=== PATIENT | female | born 1970 | race Caucasian/White ===

== ENCOUNTER → 2020-10-25 | Day surgery (SDC) | payer OTHER ==
[~2020-10-25] MED LIST: ASPIRIN EC81 MG PO; BORIC ACID VG; CLARITIN10 MG PO; FLEXERIL10 MG PO; KLOR-CON M 1010 MEQ PO; LEVOTHYROXINE88 MCG PO; LISINOPRIL-HCT1 EAC1 PO; MEDROL 4MG DOSEP4 MG PO; METFORMIN HCL500 M3 PO; SIMVASTATIN40 MG PO; TRIAMCINOLONE 080 GM TOP; VANDAZOLE70 GM VG; VENTOLIN HFA IN18 GM INH; VOLTAREN ARTHRI20 GM TOP
[2020-10-25 09:13] LABS: HCG (URINE) SCREEN NEGATIVE (NEGATIVE)
== END | disposition home or self-care (01) ==
LOC: FAS 08:30
PROVIDERS: Surgery
DX: Z12.11 Encounter for screening for malignant neoplasm of colon (principal); Z80.0 Family history of malignant neoplasm of digestive organs; J45.909 Unspecified asthma, uncomplicated; E78.5 Hyperlipidemia, unspecified; E03.9 Hypothyroidism, unspecified; E11.9 Type 2 diabetes mellitus without complications; Z79.899 Other long term (current) drug therapy; Z87.891 Personal history of nicotine dependence; Z98.890 Other specified postprocedural states; Z98.51 Tubal ligation status; Z20.822 Contact with and (suspected) exposure to COVID-19
CPT/HCPCS: 36415; 84132; 84703; J2250; J2704; J7120; U0002